=== PATIENT | female | born 1995 | race Caucasian/White ===

== ENCOUNTER 2017-04-21 22:22 | Emergency (ER) | payer SELFPAY ==
[~2017-04-21] VITALS: Ht 152.4 cm; Wt 62.6 kg
[2017-04-21 22:43] VITALS: BP 110/82
--- NOTE | 2017-04-21 23:59 | NUR ---
PT TAKEN TO BED 8
--- NOTE | 2017-04-22 00:10 | NUR ---
PT IS 21Y/F PRESENT TO ER C/O ABDOMINAL PAIN WITN NAUSEA AND VOMITING. NO DIARRHEA
--- NOTE | 2017-04-22 00:33 | NUR ---
Patient being evaluated by DR. BAUTISTA at bedside.
[2017-04-22] MEDS ORDERED: ONDANSETRON 4 MG ODT PO ONE (00:35)
--- NOTE | 2017-04-22 01:39 | NUR ---
PT RETURN FROM ULTRASOUND
--- NOTE | 2017-04-22 02:20 | NUR ---
Patient discharged with v/s stable. Written and verbal after care instructions given and explained. Patient alert, oriented and verbalized understanding of instructions. Ambulatory with steady gait. All questions addressed prior to discharge. ID band removed. Patient advised to follow up with PMD. Rx of DICLEGIS 10MG-10MG DELAYED REALEASE PO given. Patient educated on indication of medication including possible reaction and side effects. Opportunity to ask questions provided and answered.
[2017-04-22 02:22] VITALS: BP 113/77
== END 2017-04-22 02:20 | disposition home or self-care (01) ==
LOC: MED 22:22
DX: O21.9 Vomiting of pregnancy, unspecified (principal); O26.891 Other specified pregnancy related conditions, first trimester; R03.0 Elevated blood-pressure reading, without diagnosis of hypertension; R10.11 Right upper quadrant pain; Z3A.01 Less than 8 weeks gestation of pregnancy
CPT/HCPCS: 36415; 76817; 81001; 81025; 84702; 85025; 87086; 99285; S0119